=== PATIENT | male | born 1955 | race American Indian/Alaskan Native ===

== ENCOUNTER 2022-03-22 22:18 | Emergency (ER) | payer MEDICARE ==
--- NOTE | 2022-03-22 23:28 | Emergency Department Report ---
ED Fall HPI - General Stated Complaint: FALL/HEAD INJURY Time Seen by Provider: 03/22/22 23:16 Limitations: Physical Limitation - History of Present Illness Initial Comments: Patient is a 66-year-old male brought in by EMS from nursing facility for evaluation of possible head injury. States he was found on the floor by retirement staff. He currently denies any complaints. History of ICH. ED Review of Systems ROS: Stated complaint: FALL/HEAD INJURY Other details as noted in HPI Comment: All other systems reviewed and negative Constitutional: no symptoms reported. denies: chills, fever Respiratory: denies: cough, shortness of breath, wheezing Cardiovascular: denies: chest pain, palpitations Endocrine: no symptoms reported Gastrointestinal: denies: abdominal pain, nausea, diarrhea Skin: denies: rash, lesions Neurological: denies: headache, numbness Psychiatric: denies: auditory hallucinations, visual hallucinations ED Physical Exam - General Limitations: Physical Limitation General appearance: alert, in no apparent distress - Head Head exam: Present: atraumatic, normocephalic - Eye Eye exam: Present: normal appearance, PERRL, EOMI - Respiratory Respiratory exam: Present: normal lung sounds bilaterally. Absent: respiratory distress - Cardiovascular Cardiovascular Exam: Present: regular rate, normal rhythm, normal heart sounds - GI/Abdominal GI/Abdominal exam: Present: soft. Absent: distended, tenderness - Rectal Rectal exam: Present: deferred - Neurological Exam Neurological exam: Present: alert, oriented X3, CN II-XII intact - Psychiatric Psychiatric exam: Present: normal affect, normal mood - Skin Skin exam: Present: warm, dry, intact, normal color ED Medical Decision Making - Medical Decision Making CT head shows left subdural fluid collection which demonstrates few areas of increased density. Subdural hematoma is not excluded. Patient denies any symptoms and has no outward signs of trauma. I discussed the case with on-call neurosurgeon Dr. Yanes. Recommends repeat CT head in 4 to 6 hours and discharge if unchanged and patient remains asymptomatic. Repeat CT report is as follows: Redemonstrated subdural fluid collection along the left cranium. This likely represents a chronic finding given its lack of change in the interim. Patient remains asymptomatic. He is stable for discharge back to nursing facility. Critical care attestation.: If time is entered above; I have spent that time in minutes in the direct care of this critically ill patient, excluding procedure time. ED Disposition Clinical Impression: Fall at retirement Disposition: 01 HOME / SELF CARE / HOMELESS Is pt being admited?: No Does the pt Need Aspirin: No Condition: Stable Instructions: Fall Prevention in Hospitals, Adult Time of Disposition: 05:51
--- NOTE | 2022-03-23 00:57 | Cat Scan Report ---
CT HEAD WITHOUT CONTRAST INDICATION / CLINICAL INFORMATION: Fall/head injury. TECHNIQUE: All CT scans at this location are performed using CT dose reduction for ALARA by means of automated exposure control. COMPARISON: None available. FINDINGS: HEMORRHAGE: There is a left hemispheric subdural fluid collection which demonstrates foci of CSF dens ity as well as increased density. This measures approximately 0.5 cm wide and extends the entire AP d imension of the cranium. EXTRA-AXIAL SPACES: Moderately prominent likely related to cortical atrophy. VENTRICULAR SYSTEM: Moderately enlarged likely related to central atrophy. CEREBRAL PARENCHYMA: There is an encephalomalacic changes of the left frontal lobe. No acute territor ial infarct. MIDLINE SHIFT / HERNIATION: None. CEREBELLUM / BRAINSTEM: Encephalomalacic changes of the bilateral, left greater than right cerebellum . ORBITS: Normal as visualized SOFT TISSUES: No significant abnormality. SKULL: No significant abnormality. PARANASAL SINUSES / MASTOID AIR CELLS: Normal as visualized ADDITIONAL FINDINGS: None. IMPRESSION: 1. Left subdural fluid collection which demonstrates few areas of increased density. Subdural hematom a is not excluded. 2. 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 CRITICAL RESULT Time of Discovery (SCIENTIFIC PROGRAMMER/CDT): 11:39 PM Time of Communication (SCIENTIFIC PROGRAMMER/CDT): 11:41 PM Licensed Practitioner Receiving Report: Dr. Almeida Read-Back Performed: Yes. Signer Name: Eduardo Aranda DO Signed: 03/23/2022 12:53 AM Workstation Name: [id number]
--- NOTE | 2022-03-23 05:10 | Cat Scan Report ---
CT HEAD WITHOUT CONTRAST INDICATION / CLINICAL INFORMATION: Abnormal CT. TECHNIQUE: All CT scans at this location are performed using CT dose reduction for ALARA by means of automated exposure control. COMPARISON: Head CT dated 03/22/2022 FINDINGS: HEMORRHAGE: There is redemonstration of a subdural fluid collection which does not appear significant change compared to previous CT. This fluid collection continues to demonstrate hyperdense material; however, there is no interval expansion to suggest acute bleed. 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 EXTRA-AXIAL SPACES: Moderately prominent likely related to cortical atrophy. VENTRICULAR SYSTEM: Moderately enlarged likely related to central atrophy. CEREBRAL PARENCHYMA: There are encephalomalacic changes of the left frontal lobe. No acute territoria l infarct. MIDLINE SHIFT / HERNIATION: None. CEREBELLUM / BRAINSTEM: Encephalomalacic changes of the bilateral, left greater than right cerebellum . ORBITS: Normal as visualized SOFT TISSUES: No significant abnormality. SKULL: No significant abnormality. PARANASAL SINUSES / MASTOID AIR CELLS: Normal as visualized ADDITIONAL FINDINGS: None. IMPRESSION: 1. Redemonstrated subdural fluid collection along the left cranium. This likely represents a chronic finding given its lack of change in the interim. 2. Additional chronic findings as above. Signer Name: Eduardo Aranda DO Signed: 03/23/2022 5:06 AM Workstation Name: [id number]
[2022-03-23 05:59] VITALS: BP 139/74
== END 2022-03-23 11:06 | disposition home or self-care (01) ==
LOC: ED 22:18
DX: S09.90XA Unspecified injury of head, initial encounter (principal); W19.XXXA Unspecified fall, initial encounter; Y93.89 Activity, other specified; Y92.89 Other specified places as the place of occurrence of the external cause; Y99.8 Other external cause status
CPT/HCPCS: 70450; 99284